=== PATIENT | female | born 1950 | race Caucasian/White ===

== ENCOUNTER 2021-01-08 07:03 | Outpatient (REF) | payer MEDICARE, SELFPAY ==
[2021-01-08 11:25] LABS: MANUAL DIFF FLAG NO
[2021-01-08 11:37] LABS: Basophils Absolute Auto 0.1 X10*3/uL (0.0-0.2); Basophils Percent Auto 0.7 % (0-2); Eosinophils Absolute Auto 0.4 X10*3/uL (0.0-0.4); Eosinophils Percent Auto 5.3 % (0-4); Hematocrit 38.1 % (37-47); Hemoglobin 12.2 g/dl (12.0-16.0); Imm Gran Abs Auto 0.03 X10*3/uL (0.00-0.03); Imm Gran Pct Auto 0.4 % (0.0-0.4); Lymphocytes Absolute Auto 2.4 X10*3/uL (1.2-4.9); Lymphocytes Percent Auto 33.8 % (20-40); Mean Corpuscular Hemoglobin 29.5 pg (27.0-33.0); Mean Corpuscular Volume 92.3 fL (80-98); Mean Platelet Volume 10.6 fL (9.4-12.3); Monocytes Absolute Auto 0.6 X10*3/uL (0.1-1.2); Neutrophils Absolute Auto 3.6 X10*3/uL (2.0-8.3); Neutrophils Percent Auto 50.8 % (45-73); Platelet Count 259 X10*3/uL (160-400); Red Blood Count 4.13 X10*6/uL (4.20-5.50); Red Cell Distribution Width 13.6 % (11.0-16.0); White Blood Count 7.1 X10*3/uL (4.8-10.8)
[2021-01-08 11:54] LABS: Alanine Aminotransferase 16 U/L (0-31); Albumin Level 3.8 g/dL (3.5-5.0); Alkaline Phosphatase 57 U/L (39-117); Anion Gap 11 (12-20); Aspartate Amino Transferase 21 U/L (5-31); Bilirubin Total 0.5 mg/dL (0.0-1.0); Blood Urea Nitrogen 17 mg/dL (9-16); Carbon Dioxide 26 mmol/L (22-29); Chloride 107 mmol/L (96-108); Cholesterol 196 mg/dL; Estimated Glomerular Filt Rate > 60; Glucose Fasting 89 mg/dL (60-99); HDL Cholesterol 65 mg/dL; LDL Cholesterol Calculated 115 mg/dl; Potassium 3.7 mmol/L (3.3-5.1); Sodium 140 mmol/L (135-145); Total Protein 6.5 g/dL (6.5-8.0); Triglycerides 81 mg/dL
[2021-01-08 11:58] LABS: Thyroid Stimulating Hormone 2.53 uIU/mL (0.32-4.0); Vitamin D 25-OH Total 30.7 ng/mL (>30)
== END 2021-01-08 07:04 | disposition home or self-care (01) ==
LOC: HO.HMGCLDS 07:03
PROVIDERS: PCP Internal Medicine; Visit Provider Internal Medicine
DX: E78.00 Pure hypercholesterolemia, unspecified (principal); K90.0 Celiac disease
CPT/HCPCS: 36415; 80053; 80061; 82306; 84443; 85025

== ENCOUNTER 2021-12-09 07:47 | Day surgery (SDC) | payer MEDICARE, SELFPAY ==
[2021-12-02 14:53] VITALS: BMI 29.7
[2021-12-03 14:02] VITALS: BMI 29.7
--- NOTE | 2021-12-06 13:07 | HO.ANESPROP2 ---
Documented by User: Mery Lund NP 12/06/21 13:07 HPI - Anesthesia Eval Consult details Narrative: Right Cataract Extraction IOL Insertion PCP cleared No previous cataract on record PMFSH Past Medical History Medical History Bilateral cataracts Celiac disease Hx of migraine headaches Hx of perforation of tympanic membrane Hypercholesteremia Menopause Seasonal allergies Trigeminal neuralgia Surgical History Surgical History Hx of colonoscopy Social History Social History Are you a primary care program director to a significant other at home: No Do you presently have visiting nurse or other home services: No Patient Tobacco Use Status: Never used Tobacco Use of substances other than those prescribed or required for medical reasons: No Are you DNR?: No Advance Directives: No (will bring copy dos) Advance Directives Information Provided: Yes Advance Directives on File: No Patient : No Meds Allergies Allergy/AdvReac Type Severity Reaction Status Date / Time benzophenone-3 Allergy Intermediate red Uncoded 12/03/21 14:01 swollen face benzophenone-4 Allergy Intermediate red Uncoded 12/03/21 14:01 swollen face Home Medications Medication Instructions Recorded Confirmed Last Taken Type ascorbic acid (vitamin C) 1,000 mg 1,000 mg PO DAILY 12/02/21 12/03/21 Unknown History tablet (Vitamin C) aspirin 81 mg tablet,delayed 81 mg PO DAILY 12/02/21 12/03/21 12/04/21 History release cholecalciferol (vitamin D3) 50 50 mcg PO DAILY 12/02/21 12/03/21 Unknown History mcg (2,000 unit) capsule (Vitamin D3) selenium 200 mcg capsule 200 mcg PO QWEEK 12/02/21 12/03/21 Unknown History vitamin B complex 1 tab PO QWEEK 12/02/21 12/03/21 Unknown History zinc gluconate 30 mg tablet 30 mg PO QWEEK 12/02/21 12/03/21 Unknown History Exam Exam Date and Time: December 06, 2021 1307 Height,Weight and Vital Signs: Height 5 ft 6 in Weight 83.461 kg Assessment and Plan Assessment Anesthesia Assessment: Chart Reviewed Documented by User: Mitra Novak MD 12/09/21 10:37 PMFSH Past Medical History Medical History Bilateral cataracts Celiac disease Hx of migraine headaches Hx of perforation of tympanic membrane Hypercholesteremia Menopause Seasonal allergies Trigeminal neuralgia Functional capacity: independent ambulation Patient : No Family History Family history of problems with anesthesia: No Surgical History Surgical History Hx of colonoscopy History of Problems with Anesthesia: No Social History Social History Are you a primary care program director to a significant other at home: No Do you presently have visiting nurse or other home services: No Patient Tobacco Use Status: Never used Tobacco Use of substances other than those prescribed or required for medical reasons: No Are you DNR?: No Advance Directives: No (will bring copy dos) Advance Directives Information Provided: Yes Advance Directives on File: No Patient : No Meds Allergies Allergy/AdvReac Type Severity Reaction Status Date / Time benzophenone-3 Allergy Intermediate red Uncoded 12/03/21 14:01 swollen face benzophenone-4 Allergy Intermediate red Uncoded 12/03/21 14:01 swollen face Home Medications Medication Instructions Recorded Confirmed Last Taken Type ascorbic acid (vitamin C) 1,000 mg 1,000 mg PO DAILY 12/02/21 12/03/21 Unknown History tablet (Vitamin C) aspirin 81 mg tablet,delayed 81 mg PO DAILY 12/02/21 12/03/21 12/04/21 History release cholecalciferol (vitamin D3) 50 50 mcg PO DAILY 12/02/21 12/03/21 Unknown History mcg (2,000 unit) capsule (Vitamin D3) selenium 200 mcg capsule 200 mcg PO QWEEK 12/02/21 12/03/21 Unknown History vitamin B complex 1 tab PO QWEEK 12/02/21 12/03/21 Unknown History zinc gluconate 30 mg tablet 30 mg PO QWEEK 12/02/21 12/03/21 Unknown History Exam Airway Mallampati Class: II TM Dist: >3cm Neck ROM: Full Heart: RRR Lungs: CTA Assessment and Plan Final Anesthetic Review Family History of Problems with Anesthesia: No History of Problems with Anesthesia: No ASA Class: II Final Preanesthetic Review: No Changes in Pt Med Stat, Meds/Allgs Chart Reviewed, Consent Obtained/Reviewed and Anes Risks/Benef Reviewed Patient Risk: Low Procedure Risk: Low Anesthetic Plan Anesthetic Plan: MAC: Disposition: Standard PACU
--- NOTE | 2021-12-09 06:59 | MHC.SHP ---
Pre-Procedural Eval Section A Date of Service: 12/09/21 The patient is an INPATIENT: No Changes since office visit: No Cold of Flu in the past 2 weeks, No New Medical Problems, No Changes in Medication and No Patient answered all questions The History & Physical has been completed within 30 days and I have reviewed it.: Yes Section B Chief Complaint: cataract Allergies: Allergies Allergy/AdvReac Type Severity Reaction Status Date / Time benzophenone-3 Allergy Intermediate red Uncoded 12/03/21 14:01 swollen face benzophenone-4 Allergy Intermediate red Uncoded 12/03/21 14:01 swollen face Plan Diagnosis/Plan: Unchanged I have reviewed the history and physical and performed a pertinent physical examination on my patient. No changes have occurred unless specified.
[2021-12-09 09:06] VITALS: BP 143/79; PULSE 91; RESP 16; TEMP 36.6; O2SAT 99
[2021-12-09] MEDS: Tetracaine HCl/PF 0.5% Oph Sol 4 ML DROPS 1 DROP EYE-RIGHT (09:09)
[2021-12-09] MEDS: Cyclopentolate 1 % Ophth Sol 2 ML DRPBTL 1 DROP EYE-RIGHT ×3 (09:10→09:19)
[2021-12-09] MEDS: Tropicamide 1 % Ophth Sol 3 ML BTL 1 DROP EYE-RIGHT ×3 (09:11→09:20)
[2021-12-09] MEDS: Phenylephrine HCL 2.5% Oph SoL 2 ML BOTTLE 1 DROP EYE-RIGHT ×3 (09:13→09:22)
[2021-12-09] MEDS: Lactated Ringers 500 ML 50 ML IV (09:14)
--- NOTE | 2021-12-09 11:03 | HO.PNOPHT ---
Ophthalmology Procedure Procedure Date of Service: 12/09/21 Ophthalmology Viscoelastic: Healon Duet Dual Pack Pro Ophthalmology Lenses: SENSAR AR40 (9) Procedure Notes: PREOPERATIVE DIAGNOSIS: Decreased visual acuity right eye secondary to cataract POSTOPERATIVE DIAGNOSIS: Same PROCEDURE: Right cataract extraction with intraocular lens insertion SURGEON: Armin Hagen M.D. ANESTHESIA: Topical/MAC ESTIMATED BLOOD LOSS: None COMPLICATIONS: None After obtaining informed consent, the patient was brought to the operating room suite and placed in the supine position. After adequate sedation per anesthesia, topical drops of Tetracaine were given to the right eye. The eye was then prepped and draped in the usual sterile fashion. The operating room microscope was then positioned over the operative eye and a lid speculum placed. A paracentesis was created. Viscoelastic was then instilled into the anterior chamber. A three plane incision was then created temporally, utilizing a 2.85 mm keratome. Capsulotomy forceps were then utilized to create a circular tear capsulotomy. Hydrodissection and hydrodelineation were carried out until adequate mobilization of the nucleus occurred. Phacoemulsification was then utilized to remove the dense central nucleus followed by removal of the cortical material utilizing the automated aspiration irrigation unit. Viscoelastic was instilled into the posterior capsular bag followed by placement of a posterior chamber intraocular lens without difficulty. The residual Viscoelastic was then removed utilizing the automated IA machine. The wound was checked and found to be watertight. The patient tolerated the procedure well and the lid speculum was removed. Intracameral injection of Vigamox 0.1 mL followed by a subtenon injection of Kenalog-40 0.2 mL were administered. The patient will be seen in the a.m.
[2021-12-09 11:40] VITALS: BP 136/94; PULSE 78; RESP 16; TEMP 37.3; O2SAT 97
== END 2021-12-09 11:48 | disposition home or self-care (01) ==
PROVIDERS: PCP Internal Medicine; Visit Provider Ophthalmology
PROC: (CPT 66985; principal; 2021-12-09 10:50)
DX: H25.11 Age-related nuclear cataract, right eye (principal); Z83.511 Family history of glaucoma; H52.4 Presbyopia; H52.13 Myopia, bilateral; K90.0 Celiac disease; E78.00 Pure hypercholesterolemia, unspecified; Z79.82 Long term (current) use of aspirin; Z79.899 Other long term (current) drug therapy; Z88.8 Allergy status to other drugs, medicaments and biological substances
CPT/HCPCS: 66984; J2250; J3300; V2632

== ENCOUNTER 2021-12-16 09:30 | Day surgery (SDC) | payer MEDICARE, SELFPAY ==
[2021-12-03 14:04] VITALS: BMI 29.7
--- NOTE | 2021-12-13 08:41 | MHC.SHP ---
Pre-Procedural Eval Section A Date of Service: 12/13/21 The patient is an INPATIENT: No Changes since office visit: No Cold of Flu in the past 2 weeks, No New Medical Problems, No Changes in Medication and No Patient answered all questions The History & Physical has been completed within 30 days and I have reviewed it.: Yes Section B Chief Complaint: cataract Allergies: Allergies Allergy/AdvReac Type Severity Reaction Status Date / Time benzophenone-3 Allergy Intermediate red Uncoded 12/03/21 14:01 swollen face benzophenone-4 Allergy Intermediate red Uncoded 12/03/21 14:01 swollen face Plan Diagnosis/Plan: Unchanged I have reviewed the history and physical and performed a pertinent physical examination on my patient. No changes have occurred unless specified.
--- NOTE | 2021-12-13 13:07 | HO.ANESPROP2 ---
Documented by User: Mery Lund NP 12/13/21 13:08 HPI - Anesthesia Eval Consult details Narrative: 71yo F for Left Cataract Extraction IOL Insertion PCP cleared Right eye 12/09/21 with TIVA: Midaz 2 PMFSH Past Medical History Medical History Bilateral cataracts Celiac disease Hx of migraine headaches Hx of perforation of tympanic membrane Hypercholesteremia Menopause Seasonal allergies Trigeminal neuralgia Family History Family history of problems with anesthesia: No Surgical History Surgical History Hx of colonoscopy History of Problems with Anesthesia: No Social History Social History Are you a primary pharmacist critical care to a significant other at home: No Do you presently have visiting nurse or other home services: No Patient Tobacco Use Status: Never used Tobacco Use of substances other than those prescribed or required for medical reasons: No Are you DNR?: No Advance Directives: No (will bring dos) Advance Directives Information Provided: Yes Advance Directives on File: No Meds Allergies Allergy/AdvReac Type Severity Reaction Status Date / Time benzophenone-3 Allergy Intermediate red Uncoded 12/03/21 14:01 swollen face benzophenone-4 Allergy Intermediate red Uncoded 12/03/21 14:01 swollen face Home Medications Medication Instructions Recorded Confirmed Last Taken Type ascorbic acid (vitamin C) 1,000 mg 1,000 mg PO DAILY 12/02/21 12/03/21 Unknown History tablet (Vitamin C) aspirin 81 mg tablet,delayed 81 mg PO DAILY 12/02/21 12/03/21 12/04/21 History release cholecalciferol (vitamin D3) 50 50 mcg PO DAILY 12/02/21 12/03/21 Unknown History mcg (2,000 unit) capsule (Vitamin D3) selenium 200 mcg capsule 200 mcg PO QWEEK 12/02/21 12/03/21 Unknown History vitamin B complex 1 tab PO QWEEK 12/02/21 12/03/21 Unknown History zinc gluconate 30 mg tablet 30 mg PO QWEEK 12/02/21 12/03/21 Unknown History Exam Exam Date and Time: December 13, 2021 1307 Height,Weight and Vital Signs: Height 5 ft 6 in Weight 83.461 kg Assessment and Plan Assessment Anesthesia Assessment: Chart Reviewed Final Anesthetic Review Family History of Problems with Anesthesia: No History of Problems with Anesthesia: No Documented by User: Alice Turner MD 12/16/21 10:48 PMFSH Past Medical History Medical History Bilateral cataracts Celiac disease Hx of migraine headaches Hx of perforation of tympanic membrane Hypercholesteremia Menopause Seasonal allergies Trigeminal neuralgia Surgical History Surgical History Hx of colonoscopy Social History Social History Are you a primary pharmacist critical care to a significant other at home: No Do you presently have visiting nurse or other home services: No Patient Tobacco Use Status: Never used Tobacco Use of substances other than those prescribed or required for medical reasons: No Are you DNR?: No Advance Directives: No (will bring dos) Advance Directives Information Provided: Yes Advance Directives on File: No Meds Allergies Allergy/AdvReac Type Severity Reaction Status Date / Time benzophenone-3 Allergy Intermediate red Uncoded 12/03/21 14:01 swollen face benzophenone-4 Allergy Intermediate red Uncoded 12/03/21 14:01 swollen face Home Medications Medication Instructions Recorded Confirmed Last Taken Type ascorbic acid (vitamin C) 1,000 mg 1,000 mg PO DAILY 12/02/21 12/03/21 Unknown History tablet (Vitamin C) aspirin 81 mg tablet,delayed 81 mg PO DAILY 12/02/21 12/03/21 12/04/21 History release cholecalciferol (vitamin D3) 50 50 mcg PO DAILY 12/02/21 12/03/21 Unknown History mcg (2,000 unit) capsule (Vitamin D3) selenium 200 mcg capsule 200 mcg PO QWEEK 12/02/21 12/03/21 Unknown History vitamin B complex 1 tab PO QWEEK 12/02/21 12/03/21 Unknown History zinc gluconate 30 mg tablet 30 mg PO QWEEK 12/02/21 12/03/21 Unknown History Exam Airway Mallampati Class: II TM Dist: >3cm Neck ROM: Full Loose/Missing/Broken Teeth: No Heart: RRR Lungs: CTA Assessment and Plan Final Anesthetic Review NPO: Yes ASA Class: II Final Preanesthetic Review: Meds/Allgs Chart Reviewed, Consent Obtained/Reviewed and Anes Risks/Benef Reviewed Patient Risk: Low Procedure Risk: Low Anesthetic Plan Anesthetic Plan: MAC: Disposition: Standard PACU
[2021-12-16 10:48] VITALS: BP 136/81; PULSE 80; RESP 17; TEMP 37.1; O2SAT 97
--- NOTE | 2021-12-16 10:53 | P.CONAN_ITS ---
[facility] Past Medical History Medical History Bilateral cataracts Celiac disease Hx of migraine headaches Hx of perforation of tympanic membrane Hypercholesteremia Menopause Seasonal allergies Trigeminal neuralgia Family History Family history of problems with anesthesia: No Surgical History Surgical History Hx of colonoscopy History of Problems with Anesthesia: No Social History Social History Are you a primary skin care specialist to a significant other at home: No Do you presently have visiting nurse or other home services: No Patient Tobacco Use Status: Never used Tobacco Use of substances other than those prescribed or required for medical reasons: No Are you DNR?: No Advance Directives: No (will bring dos) Advance Directives Information Provided: Yes Advance Directives on File: No Meds Allergies Allergy/AdvReac Type Severity Reaction Status Date / Time benzophenone-3 Allergy Intermediate red Uncoded 12/03/21 14:01 swollen face benzophenone-4 Allergy Intermediate red Uncoded 12/03/21 14:01 swollen face Active Medications: Current Medications Cyclopentolate HCl (Cyclopentolate 1 % Ophth Huma 2 Ml Drpbtl) 1 drop EYE-LEFT Q5M JOSE DAVID Stop: 12/16/21 11:11 Lactated Ringer's (Lr) 500 mls @ 50 mls/hr IV .Q10H JOSE DAVID Stop: 12/16/21 20:59 Ketorolac Tromethamine (Ketorolac Tromethamine 0.5% Op 3 Ml Drops) 1 drop EYE- LEFT Q5M JOSE DAVID Stop: 12/16/21 11:11 Phenylephrine HCl (Phenylephrine Hcl 2.5% Oph Huma 2 Ml Bottle) 1 drop EYE-LEFT Q5M JOSE DAVID Stop: 12/16/21 11:11 Povidone Iodine (Povidone Iodine 5 % Ophth Soln 30 Ml Bottle) 1 appl EYE-LEFT PREOP PRN PRN Reason: Pre-Op Surgical Implant Prophy Tetracaine HCl (Tetracaine Hcl/Pf 0.5% Oph Huma 4 Ml Drops) 1 drop EYE-LEFT PREOP ONE Stop: 12/16/21 10:48 Triamcinolone Acetonide (Triamcinolone Acetonide 40 Mg/Ml Vial) 40 mg IM POSTOP ONE Stop: 12/16/21 10:48 Tropicamide (Tropicamide 1 % Ophth Huma 3 Ml Btl) 1 drop EYE-LEFT Q5M JOSE DAVID Stop: 12/16/21 11:11 Home Medications Medication Instructions Recorded Confirmed Last Taken Type ascorbic acid (vitamin C) 1,000 mg 1,000 mg PO DAILY 12/02/21 12/03/21 Unknown History tablet (Vitamin C) aspirin 81 mg tablet,delayed 81 mg PO DAILY 12/02/21 12/03/21 12/04/21 History release cholecalciferol (vitamin D3) 50 50 mcg PO DAILY 12/02/21 12/03/21 Unknown History mcg (2,000 unit) capsule (Vitamin D3) selenium 200 mcg capsule 200 mcg PO QWEEK 12/02/21 12/03/21 Unknown History vitamin B complex 1 tab PO QWEEK 12/02/21 12/03/21 Unknown History zinc gluconate 30 mg tablet 30 mg PO QWEEK 12/02/21 12/03/21 Unknown History Exam Exam Date and Time: December 16, 2021 1053 Height,Weight and Vital Signs: Height 5 ft 6 in Weight 83.461 kg Last Vital Signs Temp 98.7 F 12/16/21 10:48 Pulse 80 12/16/21 10:48 Resp 17 12/16/21 10:48 BP 136/81 12/16/21 10:48 Pulse Ox 97 12/16/21 10:48 O2 Del Method 12/16/21 10:48 Airway Mallampati Class: II TM Dist: >3cm Neck ROM: Full Loose/Missing/Broken Teeth: No Heart: RRR Lungs: CTA Assessment and Plan Assessment Anesthesia Assessment: Anesthesia Plan Discussed and Chart Reviewed Final Anesthetic Review Family History of Problems with Anesthesia: No History of Problems with Anesthesia: No NPO: Yes ASA Class: II Final Preanesthetic Review: Meds/Allgs Chart Reviewed, Consent Obtained/Reviewed and Anes Risks/Benef Reviewed Patient Risk: Low Procedure Risk: Low Anesthetic Plan Anesthetic Plan: MAC: Disposition: Standard PACU
[2021-12-16] MEDS: Cyclopentolate 1 % Ophth Sol 2 ML DRPBTL 1 DROP EYE-LEFT ×3 (10:55→10:59)
[2021-12-16] MEDS: Tetracaine HCl/PF 0.5% Oph Sol 4 ML DROPS 1 DROP EYE-LEFT (10:55)
[2021-12-16] MEDS: Tropicamide 1 % Ophth Sol 3 ML BTL 1 DROP EYE-LEFT ×3 (10:56→10:59)
[2021-12-16] MEDS: Phenylephrine HCL 2.5% Oph SoL 2 ML BOTTLE 1 DROP EYE-LEFT ×3 (10:56→10:59)
[2021-12-16] MEDS: Lactated Ringers 500 ML 50 ML IV (11:01)
[2021-12-16 11:06] VITALS: BP 136/81; PULSE 80; RESP 17; TEMP 37.1; O2SAT 97
--- NOTE | 2021-12-16 11:24 | HO.PNOPHT ---
Ophthalmology Procedure Procedure Date of Service: 12/16/21 Ophthalmology Viscoelastic: Healon Duet Dual Pack Pro Ophthalmology Lenses: SENSAR AR40 (9.5) Procedure Notes: PREOPERATIVE DIAGNOSIS: Decreased visual acuity left eye secondary to cataract POSTOPERATIVE DIAGNOSIS: Same PROCEDURE: Left cataract extraction with intraocular lens insertion SURGEON: Armin Hagen M.D. ANESTHESIA: Topical/MAC ESTIMATED BLOOD LOSS: None COMPLICATIONS: None After obtaining informed consent, the patient was brought to the operation room suite and placed in the supine position. After adequate sedation per anesthesia, topical drops of Tetracaine were given to the left eye. The eye was then prepped and draped in the usual sterile fashion. The operating room microscope was then positioned over the operative eye and a lid speculum placed. A paracentesis was created. Viscoelastic was then instilled into the anterior chamber. A three plane incision was then created temporally, utilizing a 2.85 mm keratome. Capsulotomy forceps were then utilized to create a circular tear capsulotomy. Hydrodissection and hydrodelineation were carried out until adequate mobilization of the nucleus occurred. Phacoemulsification was then utilized to remove the dense central nucleus followed by removal of the cortical material utilizing the automated aspiration irrigation unit. Viscoat elastic was instilled into the posterior capsular bag followed by placement of a posterior chamber intraocular lens without difficulty. The residual Viscoat elastic was then removed utilizing the automated IA machine. The wound was check and found to be watertight. The patient tolerated the procedure well and the lid speculum was removed. Intracameral injection of Vigamox 0.1 mL followed by a subtenon injection of Kenalog-40 0.2 mL were administered. The patient will be seen in the a.m.
[2021-12-16 11:49] VITALS: BP 121/81; RESP 16; TEMP 36.4; O2SAT 99
== END 2021-12-16 12:09 | disposition home or self-care (01) ==
PROVIDERS: PCP Internal Medicine; Visit Provider Ophthalmology
PROC: (CPT 66985; principal; 2021-12-16 12:00)
DX: H25.12 Age-related nuclear cataract, left eye (principal); H52.4 Presbyopia; H52.13 Myopia, bilateral; Z83.511 Family history of glaucoma; Z83.518 Family history of other specified eye disorder; K90.0 Celiac disease; G50.0 Trigeminal neuralgia; E78.00 Pure hypercholesterolemia, unspecified; J30.2 Other seasonal allergic rhinitis; Z79.82 Long term (current) use of aspirin; Z88.8 Allergy status to other drugs, medicaments and biological substances; Z79.899 Other long term (current) drug therapy
CPT/HCPCS: 66984; J2250; J3300; V2632

== ENCOUNTER 2023-01-21 08:31 | Outpatient (REF) | payer MEDICARE, SELFPAY ==
[2023-01-21 11:14] LABS: MANUAL DIFF FLAG NO
[2023-01-21 11:38] LABS: Basophils Percent Auto 0.5 % (0-2); Eosinophils Absolute Auto 0.3 X10*3/uL (0.0-0.4); Eosinophils Percent Auto 4.1 % (0-4); Hematocrit 39.2 % (37.0-47.0); Hemoglobin 12.2 g/dl (12.0-16.0); Imm Gran Abs Auto 0.01 X10*3/uL (0.00-0.03); Imm Gran Pct Auto 0.1 % (0.0-0.4); Lymphocytes Percent Auto 27.6 % (20-40); Mean Corpuscular HGB Conc 31.1 g/dl (31.0-35.0); Mean Corpuscular Volume 93.3 fL (80.0-98.0); Mean Platelet Volume 11.2 fL (9.4-12.3); Monocytes Absolute Auto 0.6 X10*3/uL (0.1-1.2); Monocytes Percent Auto 8.7 % (2-11); Neutrophils Absolute Auto 4.3 x10*3/uL (2.0-8.3); Platelet Count 239 X10*3/uL (160-400); Red Cell Distribution Width 13.4 % (11.0-16.0); White Blood Count 7.3 X10*3/uL (4.8-10.8)
[2023-01-21 12:18] LABS: Alanine Aminotransferase 14 U/L (0-31); Albumin Level 3.8 g/dL (3.5-5.0); Alkaline Phosphatase 62 U/L (39-117); Anion Gap 13 (12-20); Aspartate Amino Transferase 18 U/L (5-31); Bilirubin Total 0.4 mg/dL (0.0-1.0); Blood Urea Nitrogen 19 mg/dL (9-16); Calcium 9.8 mg/dL (8.4-10.2); Carbon Dioxide 27 mmol/L (22-29); Chloride 104 mmol/L (96-108); Cholesterol 190 mg/dL (<200); Estimated Glomerular Filt Rate > 60; Glucose Fasting 86 mg/dL (60-99); HDL Cholesterol 65 mg/dL (>40); LDL Cholesterol Calculated 112 mg/dL (<100); Potassium 3.7 mmol/L (3.3-5.1); Sodium 140 mmol/L (135-145); Triglycerides 69 mg/dL (<150)
[2023-01-21 12:19] LABS: Vitamin D 25-OH Total 36.2 ng/mL (>30)
== END 2023-01-21 08:32 | disposition home or self-care (01) ==
LOC: HO.HMGCLDS 08:31
PROVIDERS: PCP Internal Medicine; Visit Provider Internal Medicine
DX: E78.00 Pure hypercholesterolemia, unspecified (principal); K90.0 Celiac disease
CPT/HCPCS: 36415; 80053; 80061; 82306; 84443; 85025

== ENCOUNTER 2023-07-03 13:11 | Outpatient (REF) | payer MEDICARE, SELFPAY ==
--- NOTE | ~2023-07-03 | US_ITS ---
EXAMINATION: US PELVIS CLINICAL INFORMATION: History of system disease. COMPARISON: None available. TECHNIQUE: Ultrasound of the pelvis is performed using both transabdominal and transvaginal transducers along with Doppler. Transvaginal imaging is performed due to inadequate visualization transabdominally. FINDINGS: UTERUS: The uterus is anteverted and measures 7.8 x 5.0 x 5.8 cm. The double wall endometrial thickness is 6 mm. The uterus is smooth in contour and has normal myometrial echogenicity. A 4.4 x 3.5 x 4.4 cm fundal fibroid is present. The dimensions of the uterine fibroid have decreased when compared to 2009 when maximal dimension was 5.1 cm. Some complex nabothian cysts are in the cervix. ADNEXA: Neither ovary could be seen. No free fluid is present. US/US pelvic and transvaginal IMPRESSION: 1. A 4.4 cm fundal fibroid. 2. Neither ovary could be seen.
== END 2023-07-03 13:12 | disposition home or self-care (01) ==
LOC: HO.US 13:11
PROVIDERS: PCP Internal Medicine; Visit Provider Obstetrics & Gynecology
DX: D25.9 Leiomyoma of uterus, unspecified (principal); Z84.2 Family history of other diseases of the genitourinary system
CPT/HCPCS: 76830; 76856

== ENCOUNTER 2024-09-08 08:06 | Outpatient (REF) | payer MEDICARE, SELFPAY ==
[2024-09-08 10:33] LABS: MANUAL DIFF FLAG NO
[2024-09-08 10:50] LABS: Basophils Absolute Auto 0.1 X10*3/uL (0.0-0.2); Basophils Percent Auto 0.9 % (0-2); Eosinophils Absolute Auto 0.4 X10*3/uL (0.0-0.4); Eosinophils Percent Auto 5.8 % (0-4); Hemoglobin 11.9 g/dl (12.0-16.0); Imm Gran Abs Auto 0.01 X10*3/uL (0.00-0.03); Imm Gran Pct Auto 0.1 % (0.0-0.4); Lymphocytes Absolute Auto 2.3 X10*3/uL (1.2-4.9); Lymphocytes Percent Auto 33.2 % (20-40); Mean Corpuscular HGB Conc 31.3 g/dl (31.0-35.0); Mean Corpuscular Hemoglobin 28.6 pg (27.0-33.0); Mean Corpuscular Volume 91.3 fL (80.0-98.0); Mean Platelet Volume 10.4 fL (9.4-12.3); Monocytes Absolute Auto 0.6 X10*3/uL (0.1-1.2); Monocytes Percent Auto 8.6 % (2-11); Neutrophils Absolute Auto 3.5 x10*3/uL (2.0-8.3); Neutrophils Percent Auto 51.4 % (45-73); Platelet Count 305 X10*3/uL (160-400); Red Blood Count 4.16 X10*6/uL (4.20-5.50); Red Cell Distribution Width 13.8 % (11.0-16.0); White Blood Count 6.8 X10*3/uL (4.8-10.8)
[2024-09-08 11:06] LABS: Alanine Aminotransferase 16 U/L (0-31); Albumin Level 3.9 g/dL (3.5-5.0); Alkaline Phosphatase 63 U/L (39-117); Anion Gap 10 (12-20); Aspartate Amino Transferase 26 U/L (5-31); Bilirubin Total 0.3 mg/dL (0.0-1.0); Blood Urea Nitrogen 20 mg/dL (9-16); Calcium 9.7 mg/dL (8.4-10.2); Carbon Dioxide 27 mmol/L (22-29); Chloride 107 mmol/L (96-108); Cholesterol 215 mg/dL (<200); Estimated Glomerular Filt Rate > 60; Glucose Fasting 87 mg/dL (60-99); HDL Cholesterol 62 mg/dL (>40); LDL Cholesterol Calculated 135 mg/dL (<100); Potassium 3.8 mmol/L (3.3-5.1); Sodium 140 mmol/L (135-145); Total Protein 7.1 g/dL (6.5-8.0); Triglycerides 91 mg/dL (<150)
[2024-09-08 11:26] LABS: Vitamin D 25-OH Total 95.3 ng/mL (>30)
== END 2024-09-08 08:07 | disposition home or self-care (01) ==
LOC: HO.HMGCLDS 08:06
PROVIDERS: PCP Internal Medicine; Visit Provider Internal Medicine
DX: E78.00 Pure hypercholesterolemia, unspecified (principal); K90.0 Celiac disease
CPT/HCPCS: 36415; 80053; 80061; 82306; 84443; 85025

== ENCOUNTER 2024-09-14 08:53 | Outpatient (AMB) | payer MEDICARE, SELFPAY ==
--- NOTE | 2024-09-14 09:13 | MHC.PC.OV ---
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 Required: No Accompanied by: Self / Same As Patient Allergies benzophenone-3 Allergy (Intermediate, Uncoded 09/14/24 09:31) red swollen face benzophenone-4 Allergy (Intermediate, Uncoded 09/14/24 09:31) red swollen face Medication List - Last Reconciled 09/14/24 by BHARATHI Hermosillo-Dionte ascorbic acid (vitamin C) (Vitamin C) 1,000 mg PO DAILY aspirin 81 mg PO DAILY cholecalciferol (vitamin D3) (Vitamin D3) 50 mcg PO DAILY selenium 200 mcg PO QWEEK vitamin B complex 1 tab PO QWEEK zinc gluconate 30 mg PO QWEEK Tobacco use date assessed: 09/14/24 Fall risk assessment: No Falls in past year Last assessed Fall Risk: 09/14/24 Dental Screening Dental Screen Date: 09/14/24 Did you have a dental visit in the last 12 months?: Yes Did you have a dental problem in the last 6 months where you did not have access to dental care?: No Was dental information given to patient?: Patient has dentist HPI physical HPI Details The patient is a 74-year-old female presenting for a an annual physical exam and to establish new primary care provider due to her primary care provider Dr. Lanza retired in April 2024. The patient has a background of celiac disease, identified after the discovery of significant anemia in her 50s, and currently presents with mild anemia on recent bloodwork. Given the history of head trauma from a fall, she has been careful in managing her safety to avoid potentially hazardous situations. Significantly, the patient underwent cataract surgery and now experiences no significant visual disturbances. Her episodes of anemia link to her celiac disease, but she reports minimal gastrointestinal symptoms, which is not typical for the condition. Social History - Functional Status: Actively engaging in physical activities such as stacking wood and maintaining a garden, able to lift up to 50 pounds. - Nutrition: Reports consuming avocados, almonds, and monitoring cholesterol intake. Noted a mild increase in cholesterol and is focused on weight management. - Exercise: Engages in regular physical activities consistent with the ability to perform strenuous tasks. - Housing: Resides partly in [place], where she manages a house with a garden. [facility] Medical History (Updated 09/14/24 @ 10:16 by Maria Fernanda Dove PA-C) Overweight with body mass index (BMI) of 29 to 29.9 in adult Anemia Hyperlipidemia LDL goal <100 Annual physical exam H/O mammogram (~11/14/22) Establishing care with new doctor, encounter for Bilateral cataracts Hx of perforation of tympanic membrane Trigeminal neuralgia Seasonal allergies Hx of migraine headaches Menopause Celiac disease Hypercholesteremia Surgical History History of cataract surgery Hx of colonoscopy (~03/27/14) Family History Father BP (high blood pressure) Stroke Mother Heart attack Ovarian cancer Low BP Social History Housing: House Are you a primary ambulatory care nurse to a significant other at home: No Do you presently have visiting nurse or other home services: No Alcohol intake: current Alcohol intake frequency: holidays/special occasions only Patient Tobacco Use Status: Never used Tobacco service: No Current occupational status: employed 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 1. Little interest or pleasure in doing things: not at all 2. Feeling down, depressed, or hopeless: not at all 3. Trouble falling or staying asleep, or sleeping too much: not at all 4. Feeling tired or having little energy: not at all 5. Poor appetite or overeating: not at all 6. Feeling bad about yourself - or that you are a failure or have let yourself or your family down: not at all 7. Trouble concentrating on things, such as reading the newspaper or watching television: not at all 8. Moving or speaking so slowly that other people could have noticed. Or the opposite - being so fidgety or restless that you have been moving around a lot more than usual: not at all 9. Thoughts that you would be better off or of hurting yourself in some way: not at all Total score: 0 Depression Screening Interpretation: Negative Depression Screening Done: Yes 52418 - PHQ-9 Billing: Yes Source: Developed by Drs. Yovani Cameron, Sarah Monreal, Александр Solomon and colleagues, with an educational delano from [employer]. Thrive Questionnaire Date Thrive assessed: 09/14/24 I am a: Patient What is your living situation today?: I have a steady place to live Within the past 12 months, did the food you bought not last and you didn't have the money to get more?: Never true Within the past 12 months, did you worry whether your food would run out before you got money to buy more?: Never true Do you have trouble paying for medicines?: No Do you have trouble getting transportation to medical appointments?: No Do you have trouble paying your heating and electricity bill?: No Do you have trouble taking care of your child, family member or friend?: No Do you have trouble with day-to-day activities such as bathing, preparing meals, shopping, managing finances, etc.?: No Are you currently unemployed and looking for a job?: No Are you interested in more education?: No Please select the resources that you would like help with: None THRIVE Score: 0 AUDIT C Alcohol Use Questionnaire (AUDIT-C) 1. How often do you have a drink containing alcohol?: Monthly or less 2. How many drinks containing alcohol do you have on a typical day when you are drinking?: 1 or 2 3. How often do you have six or more drinks on one occasion?: Never Total Score: 1 Score Reviewed/Action Taken: No BRIE-7 AMB Questionnaire BRIE-7 Date BRIE - 7 assessed: 09/14/24 Feeling nervous, anxious, or on edge: 0 = Not at all Not being able to stop or control worryin = Not at all Worrying too much about different things: 0 = Not at all Trouble relaxin = Not at all Being so restless that it is hard to sit still: 0 = Not at all Becoming easily annoyed or irritable: 0 = Not at all Feeling afraid as if something awful might happen: 0 = Not at all Total BRIE-7 score (0-4 normal; 5-9 mild; 10-14 moderate; 15-21 severe): 0 Source: Developed by Drs. Yovani Cameron, Sarah Monreal, Александр Solomon and colleagues, with an educational delano from [employer]. BRIE-7 Assessment Billing BRIE-7 Assessment Tool: BRIE-7 Assessment 01221 Review of Systems Const Details: - Cardiovascular: Reports normal activities but notes a higher blood pressure reading than usual. - Ophthalmology: Reports 20/20 vision post-cataract surgery with no macular degeneration. - Gastrointestinal: Denies typical symptoms of celiac disease such as diarrhea. - Auditory: Some high-frequency hearing loss noted, but no difficulty with conversation. - Dermatological: Reports a history of fall with significant head trauma requiring stitches. Physical exam (Primary Care) Vital Signs: Last Vital Signs Temp 97.7 F 09/14/24 09:19 Pulse 96 09/14/24 09:19 Resp 14 09/14/24 09:19 BP 143/76 H 09/14/24 09:19 Pulse Ox 96 09/14/24 09:19 Oxygen Delivery Method Room Air 09/14/24 09:19 Care Plan Goal for BP management: <140/90 at Goal BMI result Body Mass Index 29.0 BMI Assessment/Plan discussion: High BMI High, discussed plan: lifestyle, weight reduction, dietary, physical activity and alcohol moderation Tobacco/Smoking Status: Tobacco use Status Tobacco use date assessed 09/14/24 09/14/24 09:17 Patient Tobacco Use Status Never used Tobacco 09/14/24 09:26 PHQ-9: PHQ-9 Score PHQ-9: Total score 0 09/14/24 09:28 Depression Screening Interpretation: Negative Thrive Assessment: Date of Thrive Assessment Date Thrive assessed 09/14/24 09/14/24 09:17 Const Other: Appearance: Alert. Oriented X3. No acute distress. Head: Normal external exam. Normocephalic. Atraumatic. History of head injury with eight stitches after a fall. Eyes: Pupils are equal, round, and reactive to light. Extraocular movements intact. Conjunctiva and sclera normal. Eyelids normal. History of cataract surgery with implanted lenses, resulting in 20/20 vision. No macular degeneration. Ears: External auditory canal normal. Tympanic membranes normal. Right ear has a perforation from a long-ago ear infection. Small high-frequency hearing loss in the left ear. Throat: Pharynx normal. Uvula midline. Moist mucous membranes. Neck: Normal inspection. Neck supple. Full range of motion. Cardiovascular: Normal heart rate and rhythm. Heart sound normal. No murmurs noted. Pulses normal throughout. Blood pressure recorded at 130/72. Respiratory: No respiratory distress. Painless inspiration. Breath sounds normal. No wheezes/rales/rhonchi noted. Chest nontender. No accessory muscle usage noted or decreased air movement noted. Abdomen: Soft and nontender. No distention noted. No organomegaly noted. Back: No costovertebral angle tenderness. Full range of motion noted. Skin: Skin warm and dry. Normal skin color. Normal skin turgor. No rashes/lesions/lacerations noted. Extremities: No lower extremity edema. Extremities exhibit normal range of motion. Extremities nontender. Capable of lifting 50 pounds. Neuro: Oriented X 3. No motor deficit. No sensory deficit. Reflexes normal. Results Reviewed Results Reviewed: - Labs: Hemoglobin level at 11.9 (anemia), cholesterol at 215 mg/dL, LDL at 135 mg/dL. Coding Level of Care Code New Pt Prev Care >65yr (21824) Diagnoses Establishing care with new doctor, encounter for Z Annual physical exam Z00. Celiac disease K90.0 Hypercholesteremia E78.00 Hyperlipidemia LDL goal <100 E78.5 Anemia D64.9 Overweight with body mass index (BMI) of 29 to 29.9 in adult E66.3; Z68.29 Additional Codes PHQ-9 - 97089 - PHQ-9 Billing: Yes ([id number]) BRIE-7 Assessment Billing - BRIE-7 Assessment Tool: BRIE-7 Assessment 80858 ([id number]) Assessment & Plan Assessment & Plan (1) Establishing care with new doctor, encounter for: Code(s): Z76.89 - Persons encountering health services in other specified circumstances Category: Medical (2) Annual physical exam: Code(s): Z00.00 - Encounter for general adult medical examination without abnormal findings Category: Medical (3) Celiac disease: Code(s): K90.0 - Celiac disease Category: Medical Plan: Continuing current dietary practices as there are no active symptoms affecting the patient's health status, with awareness of anemia links. Condition is chronic and stable will continue to monitor. (4) Hypercholesteremia: Code(s): E78.00 - Pure hypercholesterolemia, unspecified Category: Medical Plan: Patient declined a statin today. Patient will improve her diet and exercise regimen. Will reassess the 6 months to 12 months. Condition is chronic and stable will continue to monitor. (5) Hyperlipidemia LDL goal <100: Code(s): E78.5 - Hyperlipidemia, unspecified Category: Medical Plan: Patient declined a statin today. Patient will improve her diet and exercise regimen. Will reassess the 6 months to 12 months. Condition is chronic and stable will continue to monitor. (6) Anemia: Code(s): D64.9 - Anemia, unspecified Category: Medical Plan: Monitoring hemoglobin levels, aware of potential celiac correlation, with plans for reevaluation if no improvement. (7) Overweight with body mass index (BMI) of 29 to 29.9 in adult: Code(s): E66.3 - Overweight; Z68.29 - Body mass index [BMI] 29.0-29.9, adult Category: Medical Plan: Patient to improve diet and exercise regimen. Condition is chronic and stable continue to monitor. Plan Plan Patient was informed and verbally consented to the use of an ambient scribe for clinic note documentation during this visit. 1. Celiac Disease Continuing current dietary practices as there are no active symptoms affecting the patient's health status, with awareness of anemia links. 2. Anemia Monitoring hemoglobin levels, aware of potential celiac correlation, with plans for reevaluation if no improvement. Regarding her anemia, I explained its possible linkage to her celiac disease and reiterated the importance of monitoring hemoglobin levels. Recommendations were given for continued dietary management of cholesterol, as the patient expressed a willingness to manage it through weight reduction and diet. A potential future need for iron supplementation was discussed but deferred unless indicated by further declines in hemoglobin. Orders: Orders Hemoglobin A1c Today Z00.00 - Encounter for general adult medical examination without abnormal findings Vitamin B12 and Folate Today Z00.00 - Encounter for general adult medical examination without abnormal findings XR DEXA axial skeleton Today M81.0 - Age-related osteoporosis without current pathological fracture Patient Instructions: - Continue to follow a balanced diet, focusing on managing cholesterol levels. - Schedule a follow-up in one year unless issues arise sooner, particularly with blood pressure. - Monitor hemoglobin levels, and if the anemia worsens, consider further evaluation and potential need for iron supplementation. - Maintain regular physical activity to support overall health.
[2024-09-14 09:19] VITALS: BP 130/72; PULSE 96; RESP 14; TEMP 36.5; O2SAT 96; BMI 29.0
== END 2024-09-14 09:50 | disposition home or self-care (01) ==
LOC: HO.HMCSH 08:53
PROVIDERS: PCP Internal Medicine; Visit Provider Physician Assistant Medical
DX: E78.00 Pure hypercholesterolemia, unspecified (principal); E66.3 Overweight; Z68.29 Body mass index [BMI] 29.0-29.9, adult; Z76.89 Persons encountering health services in other specified circumstances; E78.5 Hyperlipidemia, unspecified; K90.0 Celiac disease; D64.9 Anemia, unspecified

== ENCOUNTER → 2024-09-14 08:53 | Outpatient (BNVA) | payer MEDICARE, SELFPAY | PROVIDERS: PCP Internal Medicine; Visit Provider Physician Assistant Medical | DX: Z00.00 Encounter for general adult medical examination without abnormal findings (principal); K90.0 Celiac disease; E78.00 Pure hypercholesterolemia, unspecified; E78.5 Hyperlipidemia, unspecified; D64.9 Anemia, unspecified; E66.3 Overweight; Z68.29 Body mass index [BMI] 29.0-29.9, adult; Z71.3 Dietary counseling and surveillance; Z76.89 Persons encountering health services in other specified circumstances | CPT/HCPCS: 96127; 99202 ==

== ENCOUNTER 2024-11-11 09:24 | Outpatient (REF) | payer MEDICARE, SELFPAY ==
--- NOTE | ~2024-11-11 | MM_ITS ---
EXAMINATION: DXA BONE DENSITY AXIAL HISTORY: M81.0 - Age-related osteoporosis without current pathological fracture TECHNIQUE: [employer] Dual energy absorptiometry (DEXA) of the lumbar spine, total left hip, and femoral neck was performed. COMPARISON: There are no prior studies for comparison. FINDINGS: The bone mineral density of the lumbar spine is 1.110 g/cm2, corresponding to a T-score of -0.5, and a Z-score of 0.7. This is indicative of normal bone mineral density. The bone mineral density of the left total hip is 0.863 g/cm2, corresponding to a T-score of -1.1, and a Z-score of 0.2. This is indicative of osteopenia. The bone mineral density of the left femoral neck is 0.873 g/cm2, corresponding to a T-score of -1.2, and a Z-score of 0.4. This is indicative of osteopenia. FRACTURE RISK: The FRAX index suggests a risk of major osteoporotic fracture of 10.9%, and of hip fracture 2.0%. MM/XR DEXA axial skeleton IMPRESSION: Based on bone mineral density, and according to World Health Organization (WHO) criteria, the diagnosis is consistent with osteopenia. Statistically, 68% of repeat scans fall within 1 SD (+/- 0.010 g/cm2 for AP spine L1-L4) and 1 SD (+/- 0.012 g/cm2 for femur total) FRAX is a trademark of the [employer] [place] for Metabolic Bone Disease, a World Health Organization (WHO) Collaborating Center. Electronically signed by: Yovani Galeas MD 11/11/2024 11:01 AM EDT
--- OUTSIDE RECORDS SUMMARY | 2024-11-11 09:31 | XMS_ITS | Encounter Summary ---
Author Organization [facility] Address [address] [place] [phone] Phone Care Team Providers Care Correspondence Review Clerk Name Role Phone PoolYovani chung Primary Care Provider [phone] Encounter Details Date Type Department Care Team (Late st Contact Info) Description 03/13/2021 Procedure Pass [facility] [place], [facility] Scan - [address] [address] Social History Tobacco Use Types Packs/Day Years Used Date Smoking Tobacco: Never Alcohol Use Standard Drinks/Week Comments Not Currently 0 (1 standard drink = 0.6 oz pur e alcohol) Comments Unknown Sex and Gender Information Value Date Recorded Sex Assigned at Female 03/13/2021 1:59 PM EST Legal Sex Female 1:32 PM EST Gender Identity Female 03/13/2021 1:59 PM EST Sexual Orientation Not on file documented as of this encounter Functional Status * Calculated C-SSRS Risk Score (Lifetime/Recent) Answer Date of Assessment Author No Risk Indicated 03/13/2021 1:56 PM EST Flor Deras RN * [place] Suicide Severity Rating Scale (Screener/Recent Self-Report) Question Answer Date of Assessment Author 1. Wish to be (Past 1 Month) No 03/13/2021 1:56 PM EST Flor Deras RN 2. Non-Specific Active Suicidal Thoughts (Past 1 Month) No 03/13/2021 1:56 PM EST Flor Deras RN 6. Suicidal Behavior (Lifetime) No 03/13/2021 1:56 PM EST Flor Deras RN documented as of this encounter Plan of Treatment Not on file documented as of this encounter Visit Diagnoses Not on filedocumented in this encounter Care Teams Correspondence Review Clerk Relationship Specialty Start Date End Date Yovani Lanza DO [address] [place] [id number] PCP - General Internal Medicine 03/13/21 documented as of this encounter Additional Source Comments The information contained in this document represents components of the legal health record. It is not the complete legal health record.[facility]
== END 2024-11-11 09:25 | disposition home or self-care (01) ==
LOC: HO.MAMMO 09:24
PROVIDERS: PCP Physician Assistant Medical; Visit Provider Physician Assistant Medical
DX: M81.0 Age-related osteoporosis without current pathological fracture (principal)
CPT/HCPCS: 77080

== ENCOUNTER → 2024-11-11 10:00 | Outpatient (BNV) | payer MEDICARE, SELFPAY | PROVIDERS: PCP Physician Assistant Medical; Visit Provider Radiology Diagnostic Radiology | DX: E28.39 Other primary ovarian failure (principal) | CPT/HCPCS: 77080 ==